=== PATIENT | male | born 1975 | race Two or more races ===

== ENCOUNTER 2023-01-28 08:23 | Emergency (ER) | payer SELFPAY ==
[~2023-01-28] VITALS: Ht 172.7 cm; Wt 114.0 kg
[2023-01-28 08:46] VITALS: BP 111/80
[2023-01-28] MEDS ORDERED: MONT-8 PO (09:55)
[2023-01-28] MEDS ORDERED: MELO1TAB56 PO (09:55)
[2023-01-28] MEDS ORDERED: ALBU108A5 IN (09:55)
[2023-01-28] MEDS ORDERED: DULO60CA PO (09:55)
== END 2023-01-28 10:00 | disposition home or self-care (01) ==
LOC: ER 08:23
DX: Z76.0 Encounter for issue of repeat prescription (principal)